=== PATIENT | female | born 1955 | race Caucasian/White ===

== ENCOUNTER → 2021-09-02 09:43 | Outpatient (CLI) | payer MEDICARE, SELFPAY ==
--- NOTE | 2021-09-02 09:52 | CT_ITS ---
FINAL REPORT CLINICAL HISTORY: HEMATURIA FINDINGS: Axial CT images of the abdomen and pelvis were obtained without intravenous contrast. Coronal reformatted images were also obtained.This study was performed with techniques to keep radiation doses as low as reasonably achievable (ALARA). Individualized dose reduction techniques using automated exposure control or adjustment of mA and/or kV according to the patient's size were employed. Abdomen: The lung bases are clear. There is a less than 3 mm calcification in the lower pole of the right kidney that is favored represent a parenchymal calcification. There is no definite renal stone. There is no hydronephrosis. The gallbladder is present. The liver, spleen and pancreas have an unremarkable, unenhanced appearance. There is a 17 mm mass in the lateral left kidney that cannot be accurately characterized but is favored to represent a cyst. No inflammatory process is identified. Pelvis: Images of the pelvis reveal no evidence of ureteral dilation or ureteral stone.No mass or abnormal fluid collection is identified. The appendix is normal. There is mild vascular calcification. There are phleboliths in the pelvis. IMPRESSION: Small calcification in the lower pole of the right kidney is favored to be a parenchymal calcification. No definite renal stone. Lateral left renal mass cannot be accurately characterized but favors a cyst. If indicated, renal mass protocol CT. Reviewed, Interpreted and Dictated by George Dinh III, MD Transcribed by Richmond Valiente Authenticated by George Dinh III, MD on 09/02/2021 11:39:13 AM [facility]
== END ==
PROVIDERS: PCP Family Medicine; Visit Provider Family Medicine
DX: R31.9 Hematuria, unspecified (principal)
CPT/HCPCS: 74176

== ENCOUNTER → 2021-09-14 15:08 | Outpatient (CLI) | payer MEDICARE, SELFPAY ==
--- NOTE | 2021-09-14 15:13 | US_ITS ---
FINAL REPORT TECHNIQUE: Ultrasound images of the kidneys and bladder were obtained. CLINICAL HISTORY: .eval area seen lt kidney COMPARISON: CT dated September 02, 2021 FINDINGS: The right kidney measures 8.7 cm in length. It is normal in echogenicity. There is no hydronephrosis. The left kidney measures 10.6 cm in length. There is a 1.6 cm mass in the left kidney with an appearance most consistent with a cyst. There is no hydronephrosis. IMPRESSION: 1.6 cm mass in left kidney with appearance most consistent with a cyst. No hydronephrosis. Reviewed, Interpreted and Dictated by George Dinh III, MD Transcribed by Megan Terrell Authenticated by George Dinh III, MD on 09/14/2021 04:39:[address] [facility]
== END ==
PROVIDERS: PCP Family Medicine; Visit Provider Urology
DX: N28.9 Disorder of kidney and ureter, unspecified (principal)
CPT/HCPCS: 76770

== ENCOUNTER → 2021-10-07 14:39 | Outpatient (CLI) | payer MEDICARE, SELFPAY | PROVIDERS: PCP Family Medicine; Visit Provider Urology | DX: R31.9 Hematuria, unspecified (principal); Z01.812 Encounter for preprocedural laboratory examination; Z11.52 Encounter for screening for COVID-19 | CPT/HCPCS: C9803; U0003; U0005 ==

== ENCOUNTER 2021-10-09 08:58 | Day surgery (SDC) | payer MEDICARE, SELFPAY ==
[2021-10-07 11:58] VITALS: BMI 23.0
[2021-10-09 09:16] VITALS: BP 103/83; PULSE 102; RESP 18; TEMP 37.4; O2SAT 99
[2021-10-09 10:44] VITALS: BP 166/96; PULSE 74; RESP 18; TEMP 37.2; O2SAT 98
[2021-10-09 11:04] VITALS: BP 166/96; PULSE 74; RESP 18; TEMP 37.2; O2SAT 98
--- NOTE | 2021-10-09 13:02 | P.OP_ITS ---
Date of procedure: 10/09/21 Pre-op Diagnosis:: Spotting of blood per urethra, left renal cyst Post-op Diagnosis:: Urethral prolapse, left renal cyst Procedure performed:: Cystoscopy, vaginal examination Surgeon:: Dany Ferrari MD Anesthesia: local Estimated blood loss (mL): 0 Clinical Note:: 66-year-old white female with recent complaints of blood upon wiping as well as CT evidence of a left renal cyst. She presents today for cystoscopic evaluation. A renal ultrasound confirmed that the left renal lesion was indeed cystic. Operative findings:: On examination patient has a mild urethral prolapse. Cystoscopy revealed no evidence of bladder abnormalities. Operative note:: Patient taken to the cystoscopy suite after informed consent was obtained. On the stretcher she was placed in the frog-leg position and prepped and draped in the standard surgical fashion and 2% lidocaine placed into the urethra. Vaginal examination was performed showing some mild urethral prolapse. The prolapse was circumferential in nature and the tissue was erythematous but not friable. The 16 [place] cystoscope passed into the urethral meatus and passed into the bladder without difficulty. The bladder was examined in a systematic fashion. There was no evidence of bladder tumors, mucosal abnormalities, stones, diverticula or trabeculation. Scope was retroflexed showing no evidence of bladder neck abnormalities. The ureteral orifices were in their normal anatomic position with clear efflux of urine. Scope then removed. Patient tolerated procedure well. We discussed the findings and she was placed on a course of Estrace cream to help resolve the urethral prolapse. We will see her back on an as-needed basis. Condition: stable Disposition: same day Specimens:: None Complications:: None none
== END 2021-10-09 11:05 ==
LOC: OUTP 09:02
PROVIDERS: PCP Family Medicine; Visit Provider Urology
DX: N81.0 Urethrocele (principal); Q61.01 Congenital single renal cyst; Z88.0 Allergy status to penicillin; Z88.1 Allergy status to other antibiotic agents; Z88.2 Allergy status to sulfonamides
CPT/HCPCS: 52000